=== PATIENT | female | born 1970 | race African-American/Black ===

== ENCOUNTER 2016-08-07 11:16 | Outpatient (CLI) | payer OTHER ==
[2016-08-07 12:17] LABS: Blood Urea Nitrogen 12 mg/dL (7-17)
[2016-08-07] MEDS ORDERED: NACL ONE (12:23)
--- NOTE | 2016-08-07 15:29 | Cat Scan Report ---
CT of the abdomen and pelvis with IV and without IV contrast. Findings: On the precontrast study, there is a 2 mm stone in the right kidney with no obstruction. There is a 2 mm stone in the left kidney, also with no obstruction. No ureteral stones or ureteral dilatation is seen. After contrast administration, the liver, spleen, and pancreas appear normal. The gallbladder is unremarkable. The kidneys are normal in size and configuration. There are no pelvic masses or abnormal fluid collections. No mesenteric inflammation seen. There is no free air. Impression: Bilateral small renal stones, one in each kidney, with no obstruction.
== END 2016-08-07 11:17 | disposition home or self-care (01) ==
LOC: CT 11:16
PROVIDERS: ATTEND Urology
DX: N20.0 Calculus of kidney (principal); Z90.710 Acquired absence of both cervix and uterus
CPT/HCPCS: 36415; 74178; 82565; 84520; Q9967